=== PATIENT | male | born 1965 | race Caucasian/White ===

== ENCOUNTER 2017-02-16 09:13 | Observation (INO) | payer MEDICAID, OTHER ==
[~2017-02-16] VITALS: Ht 182.9 cm; Wt 94.0 kg
[2017-02-16] VITALS (12 sets, daily range): BP systolic 113–201; BP diastolic 61–101; PULSE 92–94; RESP 11–20; Ht 182.9 cm; Wt 94.0 kg
[~2017-02-16 09:13] MED LIST: ACETAMINOPHEN 1000 MG/100 ML IVPB ONE; ROCURONIUM 50 MG INJ ONE; SEVOFLURANE 15 MIN ONE
[2017-02-16] MEDS ORDERED: SUCCINYLCHOLINE CHLORIDE 100 MG/5 ML SYG IV ONE (10:29)
[2017-02-16] MEDS ORDERED: FENTAnyl 50 MCG/ML VIAL ONE ×3 (10:29→15:18)
[2017-02-16] MEDS ORDERED: MIDAZOLAM 1 MG/ML 2 ML INJ ONE (10:29)
[2017-02-16] MEDS ORDERED: PROPOFOL 20 ML ONE (10:29)
[2017-02-16] MEDS ORDERED: LIDOCAINE 2% (SDV) 5 ML INJ ONE (10:29)
[2017-02-16] MEDS ORDERED: METF500T4 PO (10:30)
[2017-02-16] MEDS ORDERED: LISI10TA2 PO (10:31)
[2017-02-16] MEDS ORDERED: HYDR-902 PO (10:31)
[2017-02-16] MEDS ORDERED: INSU100C SQ (10:32)
[2017-02-16] MEDS ORDERED: LANT3I SC (10:32)
[2017-02-16] MEDS ORDERED: OCULAR LUBRICANT 3.5 GM OPH OINT ONE (10:36)
--- NOTE | 2017-02-16 10:54 | HPN ---
Date/Time of Note Date/Time of Note DATE: 02/16/17 TIME: 10:54 Interval H&P Admission Note Pt. seen H&P reviewed: No system changes ILEANA HANCOCK MD Feb 16, 2017 10:54
[2017-02-16] MEDS ORDERED: GELATIN SIZE 100 SPONGE ONE (11:25)
[2017-02-16] MEDS ORDERED: THROMBIN 5000 UNIT VIAL ONE (11:26)
[2017-02-16] MEDS ORDERED: POLYMYXIN/BACITRACIN 1L IRRIG ONE (11:26)
[2017-02-16] MEDS ORDERED: BETAMET NA PHOS/AC(6 MG/ML) 5ML INJ ONE (11:26)
[2017-02-16] MEDS ORDERED: BUPIVACAINE 0.25%/EPI (SDV) 30 ML INJ ONE (11:28)
[2017-02-16] MEDS ORDERED: PHENYLephrine (100 MCG/ML) 5ML SYG ONE (12:00)
[2017-02-16] MEDS ORDERED: CEFAZOLIN 1 GM INJ ONE (12:14)
[2017-02-16] MEDS ORDERED: LABETALOL HCL 20MG INJ ONE (12:38)
[2017-02-16] MEDS ORDERED: METOCLOPRAMIDE 10 MG INJ ONE (13:00)
[2017-02-16] MEDS ORDERED: ONDANSETRON 4 MG INJ ONE (13:00)
[2017-02-16] MEDS ORDERED: DEXAMETHASONE 4 MG/ML 1 ML INJ ONE (13:00)
[2017-02-16] MEDS ORDERED: INSULIN ASPART [NOVOLOG] 3 ML PEN SC ONE (14:00)
[2017-02-16] MEDS ORDERED: hydrALAzine 20 MG INJ IV PRN (14:00)
[2017-02-16] MEDS ORDERED: DIPHENHYDRAMINE 50 MG INJ IV PRN (14:00)
[2017-02-16] MEDS ORDERED: FENTAnyl 50 MCG/ML VIAL IV PRN (14:00)
[2017-02-16] MEDS ORDERED: PROCHLORPERAZINE 10 MG INJ IV PRN (14:00)
[2017-02-16] MEDS ORDERED: ONDANSETRON 4 MG INJ IV PRN ×2 (14:00→16:00)
[2017-02-16] MEDS ORDERED: LABETALOL HCL 20MG INJ IV PRN (14:00)
[2017-02-16] MEDS ORDERED: oxyCODONE 5 MG TAB PO PRN ×2 (14:00)
[2017-02-16] MEDS ORDERED: MEPERIDINE 25 MG INJ IV PRN (14:00)
[2017-02-16] MEDS ORDERED: HYDROmorphONE (0.2 MG/ML) 10ML SYG IV PRN ×2 (14:00)
[2017-02-16] MEDS ORDERED: EPHEDrine SULFATE 50 MG/5 ML SYG IV PRN (14:00)
[2017-02-16] MEDS ORDERED: ALBUMIN HUMAN 5% 250 ML ONE (14:36)
[2017-02-16] MEDS ORDERED: GLUCOSE GEL 15 GRAM TUBE PO PRN ×2 (16:00)
[2017-02-16] MEDS ORDERED: PROCHLORPERAZINE 10 MG TAB PO PRN (16:00)
[2017-02-16] MEDS ORDERED: HYDROCODONE/APAP (5/325) TAB PO PRN (16:00)
[2017-02-16] MEDS ORDERED: NACL 0.9% 3 ML SYG IV SCH (16:00)
[2017-02-16] MEDS ORDERED: DEXTROSE 50% 50 ML SYRINGE IV PRN ×2 (16:00)
[2017-02-16] MEDS ORDERED: NALOXONE (0.4 MG/ML) INJ IV PRN (16:00)
[2017-02-16] MEDS ORDERED: GLUCOSE GEL 15 GRAM TUBE BUCCAL PRN (16:00)
[2017-02-16] MEDS ORDERED: HYDROmorphONE 0.2 MG/ML PCA IV SCH (16:00)
[2017-02-16] MEDS ORDERED: GLUCAGON 1 MG INJ IM PRN (16:00)
--- NOTE | 2017-02-16 16:09 | OPR ---
Date/Time of Note Date/Time of Note DATE: 02/16/17 TIME: 15:49 Operative Report Free Text/Dictation DATE OF OPERATION: 02/16/2017 PREOPERATIVE DIAGNOSES: 1. 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 Bilateral L4-L5 spinal stenosis with L5 radiculopathy POSTOPERATIVE DIAGNOSES: 1. 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 Bilateral L4-L5 spinal stenosis with L5 radiculopathy OPERATION PERFORMED: 1. Left L3-L4 microdiscectomy 2. Bilateral L4-L5 jose-laminectomy, medial facetectomy, and foraminotomy SURGEON: Ileana Hancock MD SUPPORT SERVICES COORDINATOR: Tee Wilson MD ANESTHESIA: General endotracheal ESTIMATED BLOOD LOSS: 350 mL SURGICAL INDICATION: The patient is a 51 year-old male who presents with a several month history of worsening left greater than right lower extremity pain with left sided L4 and bilateral L5 radiculopathy. He was found to have a left paracentral disc herniation at L3-L4 and bilateral (left greater than right) sided spinal stenosis at L4-L5 which correlated well with his symptoms. The patient had failed conservative treatment. Risks, benefits, and alternatives to a L3-L4 left sided microdiscectomy and L4-5 bilateral decompression were explained to the patient and they wished to proceed. Risks explained included but were not exclusive of bleeding, infection, cauda equina syndrome, nerve injury, dural tear, iatrogenic instability requiring fusion, recurrent disc herniation, fracture, vascular injury, bowel injury, stroke, heart attack and pulmonary embolism and post-op blindness given history of retinopathy and he wished to proceed. DESCRIPTION OF TECHNIQUE: The patient was identified in the preoperative area and taken to the operating room. Rapid induction of general endotracheal anesthesia was performed. The patient was given 2 g of cefazolin for prophylaxis. The patient was then placed in the prone position on the Serg frame on a Ulises flat top table with all prominences well padded. The back was prepped and draped in the usual sterile manner. Using a spinal needle and intraoperative fluoroscopy, the appropriate level was clearly identified (L4-L5) . The skin was injected using 0.25% Marcaine with epinephrine. Longitudinal midline incision was then created using a 10 blade. Further dissection through soft tissue was performed using electrocautery down to the bilateral L4 spinous processes. Dissection was taken down the lamina and over the facet joint capsule. A self-retaining retractor was applied. Again, intraoperative fluoroscopy confirmed the L4-L5 level.The microscope was brought into use for microdissection. A rongeur was used to remove a portion of the L4 spinous process and the interspinous ligaments at the L4-5 level. We identified the interlaminar window. The microscope was brought into use for microdissection. The high-speed bur was used to thin the L4 lamina. Kerrison rongeurs were then used to resect a the lamina, and a portion of the medial facet and the bone overlying the foramen. Ligamentum flavum was also resected using the Kerrison rongeurs. Care was taken to protect the thecal sac throughout the decompressive procedure. Palpation with a ball-tip probe did not reveal any further stenosis in the central, subarticular, or foraminal areas. The bilateral L4 and L5 pedicles were palpated using a gage to ensure a pedicle to pedicle decompression. The exiting L4 nerve root and traversing L5 nerve roots were both visualized and noted to be decompressed. The cephalad and caudad extent of the decompression were also confirmed using ball-tip probes and intraoperative fluoroscopy. We then focused our attention on the L3-L4 left sided microdiskectomy. We extended our incision proximally. The dissection was taken down the left side of the L3 lamina and over the facet joint capsule. A self-retaining retractor was applied. Again, intraoperative fluoroscopy confirmed the appropriate level ( L3-L4) was verified. The microscope was brought into use for microdissection. A small portion of the caudal aspect of the cephalad lamina and medial facet was resected using a high-speed bur. A series of Kerrison rongeurs were then used to resect the ligamentum flavum. The dura and traversing nerve root were both directly visualized. These were retracted gently in a medial direction. Immediately, the extruded disc fragment was noted. The pseudo anulus was incised using an 11 blade. Several loose fragments of disk were removed. These were removed back to a stable portion of the disk. The disk space was further pressurized using a using normal saline through a syringe to ensure that no loose fragments remained behind. The disk material was noted to extend caudally behind the L5 vertebral body. The cephalad L5 laminectomy helped us visualize these fragments for removal. Palpation with a ball-tip probe did not reveal any further stenosis. The traversing L4 nerve root was noted to be significantly decompressed. Meticulous attention was then paid towards hemostasis using FloSeal. Care was taken to remove all FloSeal prior to wound closure. The fascia was then closed using 0 Vicryl in an interrupted fashion. Subcutaneous tissue was closed using 2 -0 Vicryl in an interrupted fashion. The skin was closed using a running 4-0 Monocryl stitch. The wound was dressed using Dermabond and a 4x4 sterile gauze. A subfascial medium hemovac was placed. The patient was returned to the supine position. He was extubated immediately postoperatively and taken to the recovery room in stable condition. COMPLICATIONS: None. Anesthesia Type: general Estimated Blood Loss: other Specimen: none Specimens L3-4 disk Grafts/Implants: none Complications: no Pt Condition Post Procedure: stable Disposition: PACU ILEANA HANCOCK MD Feb 16, 2017 16:02
--- NOTE | 2017-02-16 16:21 | RADRPT ---
PROCEDURE: Intraoperative imaging of the lumbar spine with fluoroscopy. CLINICAL INDICATION: Back pain. Intraoperative. TECHNIQUE: 3 images of the lumbar spine were obtained in the operating room with an image intensif ier. No radiologist was in attendance. Fluoroscopy time is 9.1 seconds. COMPARISON: No prior study is available for comparison. FINDINGS: For the purposes of this report, the last apparent true disc level is considered to be L5-S1. Based on this, the posterior surgical instruments are present overlying the L3-4 and L4-5 level. IMPRESSION: 1. Intraoperative imaging of the lumbar spine. RPTAT: QQ .Karsten Cohn MD, MD Date Time Electronically viewed and signed by .Karsten Cohn MD, on 02/16/2017 16:21 .R/
--- NOTE | 2017-02-16 17:43 | CONS ---
Date/Time of Note Date/Time of Note DATE: 02/16/17 TIME: 17:32 Assessment/Plan Assessment/Plan Problems: (1) Type 2 diabetes mellitus without complications Status: Chronic Comment: Pt. on very high basal dosage of insulin at home but also on mealtime bolus. Will check A1c with this. Will try to increase metformin to 500 mg bid and add linagliptin. Will change insulin to weight based w/ Lantus 24 units qhs and Novolog 12 qac plus 1:40 mg/dL correction. Will place on carb- controlled diet. Will monitor BG and adjust insulin accordingly. Check lipids as well and optimize. Qualifiers: Qualified Code: E11.9 - Type 2 diabetes mellitus without complication, with long-term current use of insulin (2) Essential (primary) hypertension Status: Chronic Comment: Cont. lisinopril and monitor BP (3) Lumbar disc herniation with radiculopathy Status: Resolved Comment: Per primary team. (4) Lumbar spinal stenosis Status: Resolved Comment: Per primary team (5) Aftercare following surgery of the musculoskeletal system Status: Acute Comment: Pt. seems to be doing well, s/p microdiskectomy and lumbar hemilami, POD#0. Defer to primary team for pain management and PT. Will monitor above medical problems and for any others that may arise. Will follow with you. Consultation Date/Type/Reason Admit Date/Time 02/16/2017 @ 1800 Date of Consultation: Feb 16, 2017 Type of Consultation: Medicine-Endocrinology Reason for Consultation Medical/Diabetes Management Referring Provider: ILEANA HANCOCK MD Hx of Present Illness 51 y/o H M w/ h/o T2DM and HTN who reports h/o suffering L low back pain radiating down LLE for many years mildly, reports acute worsening 2 months ago. No specific inciting event. Pain mostly constant. Initially thought he had pulled his hamstring. Alleviated by lying on his R side. Pt. eventually had MRI showing L3-L4 HD and B spinal stenosis w/ L sciatic radiculopathy. Pt. taken today for microdiskectomy and hemilaminectomy. Doing POD#0. Constitutional: improved, no complaints Eyes: no complaints ENT: no complaints Respiratory: no complaints Cardiovascular: no complaints Gastrointestinal: no complaints Genitourinary: no complaints Musculoskeletal: no complaints Neurologic: no complaints Psychological: nl mood/affect, no complaints Past Medical History Medical History: diabetes, hypertension Past Surgical History Past Surgical Hx: appendectomy Family History Significant Family History: diabetes, other (thyroid disease in sister) Social History b. 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, , 3 children Alcohol Use: occasionally Smoking Status: Current some day smoker (cigars) Drug Use: none Exam/Review of Systems Vital Signs Vitals VS - Last 72 Hours, by Label Date Time Temp Pulse Resp B/P Pulse Ox O2 Delivery O2 Flow Rate FiO2 02/16/17 17:19 94 12 145/66 98 Room Air 02/16/17 17:14 94 12 136/67 97 Room Air 02/16/17 17:04 94 12 136/67 97 Room Air 02/16/17 16:49 92 11 149/70 98 Room Air 02/16/17 16:45 92 11 149/70 98 Room Air 02/16/17 16:19 94 13 169/79 99 Room Air 02/16/17 16:14 94 12 170/75 99 Room Air 02/16/17 16:09 20 186/76 100 Room Air 02/16/17 16:04 20 196/86 100 Mask 8.0 02/16/17 15:59 Simple Mask 8.0 02/16/17 15:59 98.0 92 18 201/101 100 Mask 8.0 02/16/17 10:13 97.6 92 19 113/61 99 Room Air Vital Signs Date Time Temp Pulse Resp B/P Pulse Ox O2 Delivery O2 Flow Rate FiO2 02/16/17 17:19 94 12 145/66 98 Room Air 02/16/17 16:04 8.0 02/16/17 15:59 98.0 Exam Constitutional: alert, oriented, well developed Psych: nl mood/affect, no complaints Eyes: EOMI, PERRL, nl conjunctiva, nl lids, nl sclera ENMT: mucosa pink and moist, nl external ears & nose Neck: non-tender, supple, No bruits, No masses, No thyromegaly Respiratory: clear to auscultation, normal air movement Cardiovascular: nl pulses, regular rate and rhythm, No edema, No murmurs/extra sounds, No rub Gastrointestinal: bowel sounds, nl liver, spleen, non-tender, soft, No mass, No rebound or guarding Musculoskeletal: nl extremities to inspection Extremities: normal pulses, No clubbing, No cyanosis, No edema Neurological: [employer] II-XII intact, nl mental status, nl speech, nl strength Results Results 24 hrs Laboratory Tests Test 02/16/17 10:02 02/16/17 15:44 Bedside Glucose 201 218 Medications Medications Current Medications Oxycodone HCl (Roxicodone) 5 mg ONCE PRN PO PAIN LEVEL 1-5; Start 02/16/17 at 14:00; Stop 02/16/17 at 18:00 Oxycodone HCl (Roxicodone) 10 mg ONCE PRN PO PAIN LEVEL 6-10; Start 02/16/17 at 14:00; Stop 02/16/17 at 18:00 Acetaminophen/ Hydrocodone Bitart ([place] (5/325)) 1 tab Q4H PRN PO PAIN LEVEL 1 -5; Start 02/16/17 at 16:00 Acetaminophen/ Hydrocodone Bitart 2 tab 2 tab Q4H PRN PO PAIN LEVEL 6-10; Start 02/16/17 at 16:00 Cefazolin Sodium (Ancef 1 Gm/50 ml (Pmx)) 50 ml @ 100 mls/hr Q6 IVPB ; Start at 18:00; Stop 02/17/17 at 12:29 Prochlorperazine (Compazine) 10 mg Q4H PRN PO NAUSEA AND/OR VOMITING; Start at 16:00 Ondansetron HCl (Zofran Inj) 4 mg Q6H PRN IV NAUSEA AND/OR VOMITING; Start at 16:00 Hydromorphone HCl (Dilaudid JIG MILL OPERATOR) Q4PCA IV Last administered on 02/16/17t 16:26 ; Admin Dose 30 MG; Start 02/16/17 at 16:00 Naloxone HCl (Narcan) 0.2 mg Q2M PRN IV RR 8 BREATHS/MIN OR LESS; Start at 16:00 Miscellaneous Information 1 ea NOTE XX ; Start 02/16/17 at 16:00 Glucose (Glutose) 15 gm Q15M PRN PO DECREASED GLUCOSE; Start 02/16/17 at 16:00 Glucose (Glutose) 22.5 gm Q15M PRN PO DECREASED GLUCOSE; Start 02/16/17 at 16: 00 Dextrose (D50w Syringe) 25 ml Q15M PRN IV DECREASED GLUCOSE; Start 02/16/17 at 16:00 Dextrose (D50w Syringe) 50 ml Q15M PRN IV DECREASED GLUCOSE; Start 02/16/17 at 16:00 Glucagon (Glucagen) 1 mg Q15M PRN IM DECREASED GLUCOSE; Start 02/16/17 at 16:00 Glucose (Glutose) 15 gm Q15M PRN BUCCAL DECREASED GLUCOSE; Start 02/16/17 at 16 :00 Lisinopril (Zestril) 10 mg DAILY PO ; Start 02/17/17 at 09:00 Metformin HCl (Glucophage) 500 mg BID PO ; Start 02/17/17 at 09:00; Status UNV Miscellaneous Information (* Miscellaneous Pharmacy Order) Discontinue current oral sulfonylur... ONCE ONCE XX ; Start 02/16/17 at 17:30; Stop 02/16/17 at 17: 31; Status UNV Diagnostic Test (Pha) (Accu-Chek) XX ; Start 02/17/17 at 02:00; Status UNV Insulin Glargine (Lantus) 24 unit DAILY@20 SC ; Start 02/16/17 at 20:00; Status UNV Miscellaneous Information (* Miscellaneous Pharmacy Order) HYPOGLYCEMIA PROTOCOL w... ONCE ONCE XX ; Start 02/16/17 at 17:30; Stop 02/16/17 at 17:31; Status UNV Miscellaneous Information (* Miscellaneous Pharmacy Order) Discontinue all previ... ONCE ONCE XX ; Start 02/16/17 at 17:30; Stop 02/16/17 at 17:31; Status UNV Linagliptin (Tradjenta) 5 mg DAILY PO ; Start 02/17/17 at 09:00; Status UNV INDER WATSON MD Feb 16, 2017 17:42
[2017-02-16] MEDS: metFORMIN 500 MG TAB PO SCH (18:00)
[2017-02-16] MEDS: INSULIN ASPART [NOVOLOG] 3 ML PEN SC SCH ×3 (18:00→21:10)
[2017-02-16] MEDS: CEFAZOLIN 1 GM/50 ML (PMX) 50 ML IVPB SCH ×2 (18:05→23:44)
[2017-02-16] MEDS ORDERED: INSULIN GLARGINE [LANtus] 3 ML PEN SC SCH (20:00)
[2017-02-17 00:14] VITALS: BP 133/71; RESP 20
[2017-02-17] MEDS ORDERED: INSULIN ASPART [NOVOLOG] 3 ML PEN SC ONE (02:00)
[2017-02-17] MEDS ORDERED: ACCU-CHEK XX SCH (02:00)
[2017-02-17] MEDS: CEFAZOLIN 1 GM/50 ML (PMX) 50 ML IVPB SCH ×2 (05:13→12:00)
[2017-02-17 05:27] LABS: HEMATOCRIT 32.1 % (42.0-52.0); HEMOGLOBIN 10.6 g/dl (14.0-18.0)
[2017-02-17 05:44] LABS: CHOL/HDL RATIO 2.8 RATIO
[2017-02-17 05:50] LABS: CALCIUM 8.5 mg/dl (8.4-10.2); CREATININE 1.44 mg/dl (0.61-1.24); POTASSIUM 4.9 mmol/L (3.5-5.1)
[2017-02-17 06:23] VITALS: BP 143/79; PULSE 83; RESP 18
[2017-02-17] MEDS: metFORMIN 500 MG TAB PO SCH (07:50)
[2017-02-17 08:20] VITALS: BP 102/54; RESP 18
[2017-02-17 08:25] VITALS: BP 184/90; RESP 18
[2017-02-17] MEDS: INSULIN ASPART [NOVOLOG] 3 ML PEN SC SCH ×4 (08:55→13:03)
[2017-02-17] MEDS: HYDROCODONE/APAP (5/325) TAB PO PRN ×2 (09:00→12:26)
[2017-02-17] MEDS ORDERED: LINAGLIPTIN 5 MG TABLET PO SCH (09:00)
[2017-02-17] MEDS ORDERED: LISINOPRIL 10 MG TAB PO SCH (09:00)
[2017-02-17] MEDS ORDERED: metFORMIN 500 MG TAB PO SCH (09:00)
[2017-02-17 10:00] VITALS: BP 156/84
--- NOTE | 2017-02-17 12:17 | PDOCDIS ---
Discharge Instructions CONDITION Patient Condition: Good HOME CARE INSTRUCTIONS: Diet Instructions: RegularSpecial Diet: carb control ACTIVITY: Activity Restrictions: Avoid heavy lifting Bathing Restrictions: Shower FOLLOW UP/APPOINTMENTS Follow-up Plan Follw-up with Dr. Hancock in 2 weeks ILEANA HACNOCK MD Feb 17, 2017 12:17
[2017-02-17 12:27] VITALS: BP 150/78
== END 2017-02-17 14:20 | disposition home or self-care (01) ==
LOC: SDS 09:13 → MS1 16:15 → SDS 16:49
PROVIDERS: ADMIT Orthopaedic Surgery; ATTEND Orthopaedic Surgery
DX: M51.16 Intervertebral disc disorders with radiculopathy, lumbar region (principal); M48.06 Spinal stenosis, lumbar region; I12.9 Hypertensive chronic kidney disease with stage 1 through stage 4 chronic kidney disease, or unspecified chronic kidney disease; E11.22 Type 2 diabetes mellitus with diabetic chronic kidney disease; N18.3 Chronic kidney disease, stage 3 (moderate); E78.5 Hyperlipidemia, unspecified; E03.9 Hypothyroidism, unspecified; E66.9 Obesity, unspecified; Z68.28 Body mass index [BMI] 28.0-28.9, adult; F17.200 Nicotine dependence, unspecified, uncomplicated; Z79.4 Long term (current) use of insulin
CPT/HCPCS: 63030; 63035; 72114; 80048; 80061; 82962; 83036; 85014; 85018; 88304; 97116; 97163; 97530; J0131; J0360; J0690; J1100; J1170; J1644; J1815; J2250; J2370; J2405; J2765; J3010; P9045; Z7500; Z7512; Z7610; G0378; J0702; J7999